=== PATIENT | female | born 1995 | race Caucasian/White ===

== ENCOUNTER 2020-09-12 16:33 | Emergency (ER) | payer SELFPAY ==
[~2020-09-12] VITALS: Ht 185.4 cm; Wt 181.8 kg
[2020-09-12 16:38] VITALS: TEMP 100.2
[2020-09-12 17:18] LABS: HEMATOCRIT 39.1 % (37.0-47.0); HEMOGLOBIN 13.1 g/dl (12.5-16.0); MEAN CELL VOLUME 79 fl (80.0-100.0); MEAN CORPUSCULAR HEMOGLOBIN 27 pg (27.0-31.0); MEAN CORPUSCULAR HGB CONC 34 g/dl (33.0-37.0); MEAN PLATELET VOLUME 11.5 fl (7.4-10.4); PLATELET COUNT 309 K/mm3 (130-400); RED BLOOD COUNT 4.95 M/mm3 (4.10-5.30); REDCELL DISTRIBUTION WIDTH-CV 13.4 % (11.5-14.5)
[2020-09-12 17:29] LABS: ALBUMIN 4.5 gm/dL (3.5-5.0); BILIRUBIN,TOTAL 0.9 mg/dL (0.0-1.0); CREATININE, serum 1.02 (0.52-1.25); POTASSIUM 3.6 mmol/L (3.4-5.0); TOTAL PROTEIN 8.7 gm/dL (6.4-8.2)
[2020-09-12 18:21] LABS: C-REACTIVE PROTEIN 44.7 mg/dL (0.0-0.9)
[2020-09-12 18:37] LABS: BAND 5 % (0-10); EOSINOPHIL 1 % (0-4); LYMPHOCYTE 19 % (20.0-51.0); MICROCYTOSIS 1+; NEUTROPHILS 65 % (42.0-75.2); PLATELET ESTIMATE NORMAL (NORMAL)
[2020-09-12 20:45] VITALS: BP 113/70; PULSE 98
== END 2020-09-12 20:45 | disposition short-term general hospital (02) ==
LOC: COL.ER 16:33
PROVIDERS: Nurse Practitioner
DX: M72.6 Necrotizing fasciitis (principal)
CPT/HCPCS: J2185; J2270; J2405; J3370; J7030; J7040; J7120; Q9967